=== PATIENT | female | born 1950 | race African-American/Black ===

== ENCOUNTER 2016-04-26 18:40 | Emergency (ER) | payer MEDICARE, OTHER | END 2016-04-26 21:35 | disposition home or self-care (01) | LOC: ER 18:40 | DX: R07.89 Other chest pain (principal); I10 Essential (primary) hypertension; I71.9 Aortic aneurysm of unspecified site, without rupture; Z79.82 Long term (current) use of aspirin; N28.9 Disorder of kidney and ureter, unspecified | CPT/HCPCS: 36415; 71010; 80053; 82550; 82553; 83735; 84484; 85025; 85610; 85730; 93005 ==

== ENCOUNTER 2016-05-02 22:41 | Emergency (ER) | payer MEDICARE, OTHER | END 2016-05-03 01:45 | disposition other institution (70) | LOC: ER 22:41 | DX: R07.9 Chest pain, unspecified (principal); I71.2 Thoracic aortic aneurysm, without rupture; I12.9 Hypertensive chronic kidney disease with stage 1 through stage 4 chronic kidney disease, or unspecified chronic kidney disease; N18.9 Chronic kidney disease, unspecified; Z79.82 Long term (current) use of aspirin | CPT/HCPCS: 36415; 71010; 80053; 82550; 83735; 84484; 85025; 85610; 85730; 93005 ==